=== PATIENT | female | born 1950 | race Caucasian/White ===

== ENCOUNTER 2019-07-12 12:29 | Inpatient (IN) ==
[2019-07-12] MEDS ORDERED: Ondansetron 4 MG/2 ML VIAL IVP ONE (13:36)
[2019-07-12] MEDS ORDERED: Morphine Sulfate 2 MG/ML SYRINGE IVP ONE (13:36)
[2019-07-12] MEDS ORDERED: Isovue-370 500 ML BOTTLE IVP ONE (13:36)
[2019-07-12 14:06] LABS: Basophils % 0.1 %; Hematocrit 40.8 % (35.3-44.9); Hemoglobin 13.1 g/dL (11.5-15.4); Immature Granulocytes % 0.4 % (0-4); Lymphocytes # 0.3 K/mcL (0.6-4.6); Mean Corpuscular HGB Conc 32.1 g/dL (31.6-35.5); Mean Corpuscular Hemoglobin 28.7 pg (28.0-33.3); Mean Corpuscular Volume 89.3 fL (83.0-100.0); Mean Platelet Volume 10.4 fL (9.4-12.4); Monocytes # 0.1 K/mcL (0.0-1.3); Monocytes % 1.5 %; Neutrophils # 7.6 K/mcL (1.6-8.9); Platelet Count 200 K/mcL (140-400); Red Blood Count 4.57 M/mcL (3.82-4.97); Red Cell Distribution Width 13.1 % (11.5-14.5)
[2019-07-12 14:23] LABS: INR 1.1; Prothrombin Time 12.4 Seconds (9.4-12.1)
[2019-07-12 14:26] LABS: Bilirubin,Urine Negative (Negative); Blood,Urine Large (Negative); Color,Urine Yellow (Yellow); Glucose,Urine (UA) Normal (Normal); Ketones,Urine 80 mg/dL (Negative); Leukocyte Esterase,Urine Small (Negative); Nitrite,Urine Negative (Negative); PH,Urine 6.5 pH Units (5.0-8.0); Protein,Urine 100 mg/dL (Neg-Trace); Specific Gravity,Urine 1.018 (1.010-1.025); Urobilinogen,Urine Normal (Normal)
[2019-07-12 14:26] LABS: Activated Partial Thrombo Time 32.2 Seconds (26.0-36.0)
[2019-07-12 14:27] LABS: Hyaline Casts,Urine None Seen per lpf (None-Few); RBC,Urine 0-3 per hpf (0-3); Squamous Epithelial Cell,Urine Many per lpf (None-Few)
[2019-07-12 14:31] LABS: Clarity,Urine Slightly Cloudy (Clear)
[2019-07-12 14:36] LABS: Alanine Aminotransferase 271 Units/L (7-52); Albumin 4.1 g/dL (3.5-5.7); Albumin/Globulin Ratio 1.5 (1.1-2.2); Alkaline Phosphatase 242 Units/L (34-104); Amylase 17 Units/L (29-103); Aspartate Amino Transferase 109 Units/L (13-39); BUN/Creatinine Ratio 67 (6-26); Bilirubin,Direct 0.3 mg/dL (0.0-0.2); Bilirubin,Indirect 0.7 mg/dL (0.0-1.0); Blood Urea Nitrogen 22 mg/dL (8-23); Carbon Dioxide 23 mEq/L (23-29); Chloride 103 mEq/L (98-107); Globulin 2.8 g/dL (2.4-3.5); Glucose 112 mg/dL (70-105); Lipase < 3 Units/L (11-82); Osmolality,Calculated 294 (280-300); Potassium 3.3 mEq/L (3.5-5.1); Sodium 140 mEq/L (136-145); Total Protein 6.9 g/dL (6.4-8.9); Troponin I < 0.03 ng/mL (< 0.04); eGFR For African Americans > 60 (> 60); eGFR For Non-African Americans > 60 (> 60)
[2019-07-12 14:39] LABS: Bacteria,Urine Few per hpf (None-Few)
[2019-07-12] MEDS ORDERED: 0.9 % Sodium Chloride 1,000 ML IV ONE (16:02)
[2019-07-12] MEDS ORDERED: cefTRIAXone 1,000 MG in Water for inj. (sterile) 10 ML IVP ONE (16:07)
[2019-07-12] MEDS ORDERED: Naloxone 0.4 MG/ML INJ IVP PRN (17:18)
[2019-07-12] MEDS ORDERED: Acetaminophen 325 MG TABLET PO PRN (17:18)
[2019-07-12] MEDS: Ondansetron 4 MG/2 ML VIAL IVP PRN (20:14)
[2019-07-12] MEDS: *HR* OxyCODONE Immed Rel 5 MG TABLET PO PRN (20:15)
[2019-07-12] MEDS: Pantoprazole 40 MG VIAL IVP SCH (21:13)
[2019-07-12] MEDS: Potassium Chloride 40 MEQ in D5% in 0.45% NACL 1,000 ML IVC SCH (22:24)
[2019-07-12] MEDS: *HR* LORazepam 1 MG TABLET PO SCH (23:03)
[2019-07-13] MEDS: *HR* OxyCODONE Immed Rel 5 MG TABLET PO PRN ×3 (04:17→21:41)
[2019-07-13] MEDS: Ondansetron 4 MG/2 ML VIAL IVP PRN ×3 (04:17→21:44)
[2019-07-13] MEDS ORDERED: *HR* Midazolam HCl 5 MG/5 ML VIAL IVP ONE ×2 (08:46→08:50)
[2019-07-13] MEDS ORDERED: *HR* FentaNYL (PF) 100 MCG/2 ML VIAL IVP ONE (08:46)
[2019-07-13] MEDS ORDERED: *HR* FentaNYL (PF) 100 MCG/2 ML VIAL ONE (08:49)
[2019-07-13 08:54] LABS: Eosinophils % 0.2 %; Hematocrit 36.2 % (35.3-44.9); Hemoglobin 12.2 g/dL (11.5-15.4); Immature Granulocytes % 0.5 % (0-4); Lymphocytes # 0.7 K/mcL (0.6-4.6); Lymphocytes % 11.7 %; Mean Corpuscular HGB Conc 33.7 g/dL (31.6-35.5); Mean Corpuscular Hemoglobin 28.8 pg (28.0-33.3); Mean Corpuscular Volume 85.4 fL (83.0-100.0); Mean Platelet Volume 10.3 fL (9.4-12.4); Monocytes # 0.4 K/mcL (0.0-1.3); Monocytes % 7.1 %; Neutrophils # 4.6 K/mcL (1.6-8.9); Platelet Count 204 K/mcL (140-400); Red Blood Count 4.24 M/mcL (3.82-4.97); Red Cell Distribution Width 13.2 % (11.5-14.5); Segmented Neutrophils % 80.5 %; White Blood Count 5.7 K/mcL (4.3-11.1)
[2019-07-13 09:11] LABS: BUN/Creatinine Ratio 60 (6-26); Blood Urea Nitrogen 18 mg/dL (8-23); Calcium 8.6 mg/dL (8.6-10.3); Carbon Dioxide 24 mEq/L (23-29); Chloride 107 mEq/L (98-107); Glucose 126 mg/dL (70-105); Osmolality,Calculated 289 (280-300); Potassium 3.7 mEq/L (3.5-5.1); Sodium 138 mEq/L (136-145); eGFR For African Americans > 60 (> 60); eGFR For Non-African Americans > 60 (> 60)
[2019-07-13 09:13] LABS: Albumin 3.8 g/dL (3.5-5.7); Albumin/Globulin Ratio 1.6 (1.1-2.2); Bilirubin,Direct 0.2 mg/dL (0.0-0.2); Bilirubin,Indirect 0.6 mg/dL (0.0-1.0); Bilirubin,Total 0.8 mg/dL (0.3-1.0); Globulin 2.4 g/dL (2.4-3.5); Total Protein 6.2 g/dL (6.4-8.9)
[2019-07-13 09:27] LABS: Hepatitis B Surface Antibody < 3.10 mIU/mL
[2019-07-13 09:38] LABS: Hepatitis B Surface Antigen Nonreactive (Nonreactive)
[2019-07-13] MEDS: *HR* LORazepam 1 MG TABLET PO SCH ×2 (10:04→21:43)
[2019-07-13 10:06] LABS: Hepatitis C Virus Antibody Nonreactive (Nonreactive)
[2019-07-13] MEDS: Pantoprazole 40 MG VIAL IVP SCH ×2 (11:27→16:49)
[2019-07-13] MEDS ORDERED: Nitroglycerin 0.4 MG TAB.SUBL SL PRN (12:38)
[2019-07-13] MEDS: Potassium Chloride 40 MEQ in D5% in 0.45% NACL 1,000 ML IVC SCH (13:55)
[2019-07-13] MEDS ORDERED: Linaclotide [Linzess] 72 MCG PO PRN (15:06)
[2019-07-13] MEDS: *HR* Heparin 5,000 UNIT/ML VIAL SQ SCH (16:49)
[2019-07-13] MEDS: *HR* HYDROcodone/Acet 5/325 mg TABLET PO PRN (16:50)
[2019-07-13] MEDS: *HR* Promethazine 25 MG/ML VIAL IVP PRN (16:50)
[2019-07-13] MEDS: Pregabalin 75 MG CAPSULE PO SCH (21:42)
[2019-07-14 02:35] LABS: Basophils % 0.6 %; Eosinophils % 0.6 %; Immature Granulocytes % 0.8 % (0-4); Lymphocytes # 1.5 K/mcL (0.6-4.6); Lymphocytes % 29.1 %; Mean Corpuscular HGB Conc 34.3 g/dL (31.6-35.5); Mean Corpuscular Volume 84.5 fL (83.0-100.0); Mean Platelet Volume 10.4 fL (9.4-12.4); Monocytes # 0.4 K/mcL (0.0-1.3); Monocytes % 8.6 %; Platelet Count 209 K/mcL (140-400); Red Blood Count 4.14 M/mcL (3.82-4.97); Red Cell Distribution Width 13.2 % (11.5-14.5); Segmented Neutrophils % 60.3 %
[2019-07-14 02:58] LABS: Alanine Aminotransferase 130 Units/L (7-52); Albumin 3.5 g/dL (3.5-5.7); Albumin/Globulin Ratio 1.5 (1.1-2.2); Alkaline Phosphatase 174 Units/L (34-104); Aspartate Amino Transferase 27 Units/L (13-39); BUN/Creatinine Ratio 21 (6-26); Bilirubin,Total 0.6 mg/dL (0.3-1.0); Blood Urea Nitrogen 6 mg/dL (8-23); Calcium 8.3 mg/dL (8.6-10.3); Carbon Dioxide 23 mEq/L (23-29); Chloride 109 mEq/L (98-107); Globulin 2.4 g/dL (2.4-3.5); Glucose 113 mg/dL (70-105); Osmolality,Calculated 282 (280-300); Sodium 137 mEq/L (136-145); Total Protein 5.9 g/dL (6.4-8.9); eGFR For African Americans > 60 (> 60); eGFR For Non-African Americans > 60 (> 60)
[2019-07-14] MEDS: Potassium Chloride 40 MEQ in D5% in 0.45% NACL 1,000 ML IVC SCH ×3 (03:52→20:34)
[2019-07-14] MEDS: Pantoprazole 40 MG VIAL IVP SCH ×2 (05:34→18:47)
[2019-07-14] MEDS: *HR* Promethazine 25 MG/ML VIAL IVP PRN ×2 (05:34→13:14)
[2019-07-14] MEDS: *HR* Heparin 5,000 UNIT/ML VIAL SQ SCH ×2 (05:34→18:47)
[2019-07-14] MEDS: *HR* HYDROcodone/Acet 5/325 mg TABLET PO PRN (05:34)
[2019-07-14] MEDS: Fluconazole 400 MG/200 ML 400 MG/200 ML BAG IVPB SCH (09:30)
[2019-07-14] MEDS: Pregabalin 75 MG CAPSULE PO SCH ×2 (09:31→20:33)
[2019-07-14] MEDS: *HR* OxyCODONE Immed Rel 5 MG TABLET PO PRN (09:31)
[2019-07-14] MEDS: *HR* LORazepam 1 MG TABLET PO SCH ×2 (09:31→20:33)
[2019-07-14] MEDS: *HR* Methadone 10 MG TABLET PO SCH ×2 (13:14→20:34)
[2019-07-14] MEDS: Ondansetron 4 MG/2 ML VIAL IVP PRN (20:37)
[2019-07-15] MEDS: *HR* Heparin 5,000 UNIT/ML VIAL SQ SCH (05:23)
[2019-07-15] MEDS: Pantoprazole 40 MG VIAL IVP SCH (05:24)
[2019-07-15 06:00] LABS: Alanine Aminotransferase 84 Units/L (7-52); Albumin 3.5 g/dL (3.5-5.7); Albumin/Globulin Ratio 1.5 (1.1-2.2); Alkaline Phosphatase 178 Units/L (34-104); Aspartate Amino Transferase 16 Units/L (13-39); BUN/Creatinine Ratio 18 (6-26); Bilirubin,Total 0.6 mg/dL (0.3-1.0); Blood Urea Nitrogen 6 mg/dL (8-23); Calcium 8.6 mg/dL (8.6-10.3); Carbon Dioxide 25 mEq/L (23-29); Chloride 105 mEq/L (98-107); Globulin 2.3 g/dL (2.4-3.5); Glucose 104 mg/dL (70-105); Osmolality,Calculated 282 (280-300); Potassium 4.3 mEq/L (3.5-5.1); Sodium 137 mEq/L (136-145); Total Protein 5.8 g/dL (6.4-8.9); eGFR For African Americans > 60 (> 60); eGFR For Non-African Americans > 60 (> 60)
[2019-07-15] MEDS: Fluconazole 400 MG/200 ML 400 MG/200 ML BAG IVPB SCH (09:17)
[2019-07-15] MEDS: *HR* Methadone 10 MG TABLET PO SCH (09:19)
[2019-07-15] MEDS: *HR* LORazepam 1 MG TABLET PO SCH (09:19)
[2019-07-15] MEDS: Pregabalin 75 MG CAPSULE PO SCH (09:19)
[2019-07-15 10:09] VITALS: BP 106/69
== END 2019-07-15 14:51 | disposition home or self-care (01) | DRG 699 ==
LOC: EMEROOARM 12:29 → 3ANU 12:29 → SUATTDRO 17:20 → 3ANU 18:39
PROVIDERS: ADMIT Internal Medicine; ATTEND Internal Medicine
PROC: ENDOEBX (2019-07-13 08:45)

== ENCOUNTER 2021-06-16 09:31 | Observation (INO) ==
[2021-06-16] MEDS ORDERED: levoFLOXacin 500 MG/100 ML 500 MG/100 ML BAG IVPB ONE (10:16)
[2021-06-16 11:06] LABS: Basophils % 0.3 %; Eosinophils # 0.1 K/mcL (0.0-0.6); Eosinophils % 2.1 %; Hematocrit 33.8 % (35.3-44.9); Hemoglobin 10.6 g/dL (11.5-15.4); Immature Granulocytes % 0.5 % (0-4); Lymphocytes # 0.9 K/mcL (0.6-4.6); Lymphocytes % 14.1 %; Mean Corpuscular HGB Conc 31.4 g/dL (31.6-35.5); Mean Corpuscular Hemoglobin 25.7 pg (28.0-33.3); Mean Platelet Volume 9.8 fL (9.4-12.4); Monocytes # 0.4 K/mcL (0.0-1.3); Neutrophils # 4.9 K/mcL (1.6-8.9); Platelet Count 281 K/mcL (140-400); Red Blood Count 4.12 M/mcL (3.82-4.97); Red Cell Distribution Width 14.3 % (11.5-14.5); White Blood Count 6.3 K/mcL (4.3-11.1)
[2021-06-16] MEDS: Ringers Solution, Lactated 1,000 ML IVC SCH ×2 (11:09→17:13)
[2021-06-16 11:18] LABS: INR 1.1; Prothrombin Time 12.3 Seconds (9.4-12.1)
[2021-06-16 11:20] LABS: Activated Partial Thrombo Time 32.3 Seconds (26.0-36.0)
[2021-06-16] MEDS ORDERED: *HR* Midazolam HCl 2 MG/2 ML VIAL IVP ONE (13:08)
[2021-06-16] MEDS ORDERED: *HR* FentaNYL (PF) 100 MCG/2 ML VIAL IVP ONE (13:08)
[2021-06-16] MEDS ORDERED: *HR* FentaNYL (PF) 100 MCG/2 ML VIAL ONE (13:19)
[2021-06-16] MEDS ORDERED: *HR* Propofol 200 MG/20 ML VIAL IVP ONE (13:19)
[2021-06-16] MEDS ORDERED: Ondansetron 4 MG/2 ML VIAL ONE (13:20)
[2021-06-16] MEDS ORDERED: *HR* Rocuronium Bromide 50 MG/5 ML VIAL ONE (13:20)
[2021-06-16] MEDS ORDERED: Lidocaine -MPF 2% 5 ML VIAL ONE (13:20)
[2021-06-16] MEDS ORDERED: Lidocaine -MPF 4% 5 ML AMPUL ONE (13:28)
[2021-06-16] MEDS ORDERED: 0.9 % Sodium Chloride 500 ML ONE (13:28)
[2021-06-16] MEDS ORDERED: Lidocaine 1% 20 ML MDV ONE (14:02)
[2021-06-16] MEDS ORDERED: Isovue-300 50ML VIAL ONE (14:02)
[2021-06-16] MEDS ORDERED: Isovue-300 50ML VIAL IVP ONE (14:14)
[2021-06-16] MEDS ORDERED: Sugammadex Sodium 200 MG/2 ML VIAL IV ONE (15:56)
[2021-06-16] MEDS ORDERED: Ondansetron 4 MG/2 ML VIAL IVP PRN ×2 (16:50→18:16)
[2021-06-16] MEDS ORDERED: *HR* HYDROmorphone (PF) 1 MG/ML SYRINGE ONE (16:54)
[2021-06-16] MEDS: *HR* HYDROmorphone PF 0.5 MG/0.5 ML SYRINGE IVP PRN ×4 (16:55→17:18)
[2021-06-16] MEDS ORDERED: Ringers Solution, Lactated 1,000 ML ONE (17:00)
[2021-06-16] MEDS: *HR* HYDROmorphone (PF) 1 MG/ML SYRINGE IVP PRN ×2 (17:31→17:39)
[2021-06-16] MEDS ORDERED: *HR* HYDROcodone/Acet 5/325 mg TABLET PO PRN (18:16)
[2021-06-16] MEDS ORDERED: *HR* Belladonna Alkaloids/Opium 30 MG RECTAL SUPPOSITORY RC PRN (18:16)
[2021-06-16] MEDS ORDERED: Naloxone 0.4 MG/ML INJ IVP PRN (18:16)
[2021-06-16] MEDS ORDERED: Acetaminophen IV 500 MG/50 ML BAG IVPB ONE (18:16)
[2021-06-16] MEDS: *HR* OxyCODONE Immed Rel 5 MG TABLET PO PRN (18:59)
[2021-06-16] MEDS: 0.9 % Sodium Chloride 1,000 ML IVC SCH (19:09)
[2021-06-16] MEDS: Pregabalin 75 MG CAPSULE PO SCH (22:20)
[2021-06-16] MEDS: *HR* LORazepam 1 MG TABLET PO SCH (22:21)
[2021-06-16] MEDS: *HR* Methadone 10 MG TABLET PO SCH (22:22)
[2021-06-17] MEDS: *HR* OxyCODONE Immed Rel 5 MG TABLET PO PRN ×3 (02:37→16:37)
[2021-06-17 05:26] LABS: Basophils % 0.2 %; Hematocrit 32.5 % (35.3-44.9); Immature Granulocytes % 0.5 % (0-4); Lymphocytes # 0.6 K/mcL (0.6-4.6); Lymphocytes % 5.6 %; Mean Corpuscular HGB Conc 30.8 g/dL (31.6-35.5); Mean Corpuscular Hemoglobin 25.6 pg (28.0-33.3); Mean Corpuscular Volume 83.3 fL (83.0-100.0); Mean Platelet Volume 10.2 fL (9.4-12.4); Monocytes # 0.8 K/mcL (0.0-1.3); Monocytes % 7.5 %; Neutrophils # 9.4 K/mcL (1.6-8.9); Platelet Count 291 K/mcL (140-400); Red Cell Distribution Width 14.3 % (11.5-14.5); Segmented Neutrophils % 86.2 %
[2021-06-17 05:27] LABS: White Blood Count 10.9 K/mcL (4.3-11.1)
[2021-06-17 06:37] LABS: BUN/Creatinine Ratio 26 (6-26); Blood Urea Nitrogen 11 mg/dL (8-23); Calcium 8.4 mg/dL (8.6-10.3); Carbon Dioxide 26 mEq/L (23-29); Chloride 100 mEq/L (98-107); Glucose 85 mg/dL (70-105); Osmolality,Calculated 277 (280-300); Potassium 3.9 mEq/L (3.5-5.1); Sodium 134 mEq/L (136-145); eGFR For African Americans > 60 (> 60); eGFR For Non-African Americans > 60 (> 60)
[2021-06-17] MEDS: lisinopriL 5 MG TABLET PO SCH (07:39)
[2021-06-17] MEDS: 0.9 % Sodium Chloride 1,000 ML IVC SCH ×2 (07:59→22:12)
[2021-06-17] MEDS: Famotidine 20 MG TABLET PO SCH (07:59)
[2021-06-17] MEDS: levoFLOXacin 500 MG/100 ML 500 MG/100 ML BAG IVPB SCH (08:00)
[2021-06-17] MEDS: *HR* LORazepam 1 MG TABLET PO SCH ×2 (08:00→22:08)
[2021-06-17] MEDS: *HR* Methadone 10 MG TABLET PO SCH ×2 (08:00→22:07)
[2021-06-17] MEDS: Pregabalin 75 MG CAPSULE PO SCH ×2 (08:00→22:08)
[2021-06-18] MEDS: *HR* OxyCODONE Immed Rel 5 MG TABLET PO PRN ×2 (00:28→05:54)
[2021-06-18] MEDS: Pregabalin 75 MG CAPSULE PO SCH (09:25)
[2021-06-18] MEDS: lisinopriL 5 MG TABLET PO SCH (09:26)
[2021-06-18] MEDS: Famotidine 20 MG TABLET PO SCH (09:26)
[2021-06-18] MEDS: *HR* LORazepam 1 MG TABLET PO SCH (09:26)
[2021-06-18] MEDS: *HR* Methadone 10 MG TABLET PO SCH (09:27)
[2021-06-18] MEDS: levoFLOXacin 500 MG/100 ML 500 MG/100 ML BAG IVPB SCH (09:28)
[2021-06-18 11:27] VITALS: PULSE 97
[2021-06-18 14:26] LABS: Influenza A PCR Negative (Negative); Influenza B PCR Negative (Negative); Resp. Syncytial Virus PCR Negative (Negative)
[2021-06-18 14:29] LABS: SARS-CoV-2 by PCR (In House) Negative (Negative)
[2021-06-18 16:26] VITALS: BP 132/81; TEMP 98.4; O2SAT 94
[2021-06-20 11:52] LABS: Calculi Mass 25 mg
== END 2021-06-18 20:44 ==
LOC: 3ANU 09:31 → SAMDAY 09:31 → 3ANU 18:14
PROVIDERS: ADMIT Urology; ATTEND Urology